=== PATIENT | female | born 1970 | race Two or more races ===

== ENCOUNTER 2019-05-09 10:04 | Outpatient (CLI) | payer BC ==
[2019-05-09 10:43] LABS: APPEARANCE,URINE SL CLOUDY (CLEAR); BILIRUBIN,URINE NEGATIVE (NEGATIVE); BLOOD, URINE TRACE-INTA Ery/uL (NEGATIVE); COLOR,URINE YELLOW (YELLOW); KETONES,URINE NEGATIVE (NEGATIVE); LEUKOCYTE ESTERASE ,URINE NEGATIVE (NEGATIVE); NITRITE, URINE NEGATIVE (NEGATIVE); PROTEIN,URINE NEGATIVE (NEGATIVE); UGLUCOSE NEGATIVE (NEGATIVE); UROBILINOGEN,URINE 0.2 EU/dL (0.2)
[2019-05-09 10:45] LABS: BASOPHILS % (AUTO) 0.8 % (0.0-2.0); EOSINOPHILS % (AUTO) 1.4 % (0.0-6.0); HEMATOCRIT 43 % (33-45); HEMOGLOBIN 14.5 g/dL (11.5-14.8); LYMPHOCYTES # (AUTO) 1.7 /CMM (0.8-4.8); LYMPHOCYTES % (AUTO) 28.9 % (20.0-44.0); MEAN CORPUSCULAR HGB CONC 33 g/dl (31.0-36.0); MEAN CORPUSCULAR VOLUME 91 fL (82-100); MONOCYTES # (AUTO) 0.4 /CMM (0.1-1.30); MONOCYTES % (AUTO) 7.1 % (2.0-12.0); NEUTROPHILS # (AUTO) 3.7 /CMM (1.8-8.9); NEUTROPHILS % (AUTO) 61.8 % (43.0-81.0); PLATELET COUNT (AUTO) 263 /CMM (150-450); RED BLOOD CELL COUNT(AUTO) 4.77 MIL/uL (4.0-5.2); WHITE BLOOD COUNT (AUTO) 5.9 K/uL (4.3-11.0)
[2019-05-09 10:58] LABS: BACTERIA,URINE Few /HPF (None Seen); RBC,URINE 0-2 /HPF (0-2); SQUAMOUS EPITHELIAL CELL,UR Many /HPF (None Seen); WBC,URINE 0-2 /HPF (0-3)
[2019-05-09 10:59] LABS: ALBUMIN 3.8 g/dL (3.4-5.0); BILIRUBIN,TOTAL 0.4 mg/dL (0.2-1.0); CREATININE 0.7 mg/dL (0.6-1.3); POTASSIUM 3.9 mmol/L (3.5-5.1); TOTAL PROTEIN, SERUM 7.3 g/dL (6.4-8.2)
[2019-05-09 11:06] LABS: THYROID STIMULATING HORMONE 1.449 uIU/mL (0.358-3.74)
== END 2019-05-09 23:59 | disposition home or self-care (01) ==
LOC: LAB 10:04
PROVIDERS: ATTEND Family Medicine
DX: Z00.01 Encounter for general adult medical examination with abnormal findings (principal); Z11.3 Encounter for screening for infections with a predominantly sexual mode of transmission; E55.9 Vitamin D deficiency, unspecified
CPT/HCPCS: 36415; 80053-TC; 80061-TC; 81000-TC; 82306; 84439-TC; 84443-TC; 85025-TC; 86592; 87806

== ENCOUNTER 2019-06-03 08:05 | Outpatient (CLI) | payer BC ==
[2019-06-03 09:03] LABS: APPEARANCE,URINE CLEAR (CLEAR); BILIRUBIN,URINE NEGATIVE (NEGATIVE); BLOOD, URINE NEGATIVE Ery/uL (NEGATIVE); COLOR,URINE YELLOW (YELLOW); KETONES,URINE NEGATIVE (NEGATIVE); LEUKOCYTE ESTERASE ,URINE NEGATIVE (NEGATIVE); NITRITE, URINE NEGATIVE (NEGATIVE); PROTEIN,URINE NEGATIVE (NEGATIVE); UGLUCOSE NEGATIVE (NEGATIVE); UROBILINOGEN,URINE 0.2 EU/dL (0.2)
== END 2019-06-03 23:59 | disposition home or self-care (01) ==
LOC: LAB 08:05
PROVIDERS: ATTEND Family Medicine
DX: R31.9 Hematuria, unspecified (principal)
CPT/HCPCS: 81000-TC

== ENCOUNTER 2019-07-23 14:22 | Emergency (ER) | payer BC, OTHER ==
[~2019-07-23] VITALS: Ht 154.9 cm; Wt 68.9 kg
[2019-07-23 14:46] VITALS: BP 135/77
--- NOTE | 2019-07-23 15:59 | NUR ---
covid swab sent to lab
== END 2019-07-23 16:00 | disposition home or self-care (01) ==
LOC: ER 14:22
DX: Z03.818 Encounter for observation for suspected exposure to other biological agents ruled out (principal); J45.909 Unspecified asthma, uncomplicated
CPT/HCPCS: 99283; U0003

== ENCOUNTER 2019-07-24 09:25 | Outpatient (CLI) | payer BC | END 2019-07-24 23:59 | disposition home or self-care (01) | LOC: LAB 09:25 | PROVIDERS: ATTEND Family Medicine | DX: M47.816 Spondylosis without myelopathy or radiculopathy, lumbar region (principal); M43.17 Spondylolisthesis, lumbosacral region; M41.86 Other forms of scoliosis, lumbar region | CPT/HCPCS: 36415; 72110-TC; 84550-TC; 86431-TC ==

== ENCOUNTER 2019-08-17 13:40 | Emergency (ER) | payer BC, OTHER ==
[~2019-08-17] VITALS: Ht 154.9 cm; Wt 73.5 kg
[2019-08-17 13:55] VITALS: BP 126/78
--- NOTE | 2019-08-17 14:31 | NUR ---
COVID TESTING DONE & SENT TO LAB.
== END 2019-08-17 14:32 | disposition home or self-care (01) ==
LOC: ER 13:42
DX: Z11.59 Encounter for screening for other viral diseases (principal)
CPT/HCPCS: 99283; C9803; U0003

== ENCOUNTER 2019-08-23 13:46 | Emergency (ER) | payer OTHER ==
[~2019-08-23] VITALS: Ht 154.9 cm; Wt 73.5 kg
[2019-08-23 14:06] VITALS: BP 127/82
--- NOTE | 2019-08-23 15:10 | NUR ---
COVID SWAB OBTAINED AND SENT TO LAB.
--- NOTE | 2019-08-23 15:24 | NUR ---
Patient discharged to home in stable condition. Written and verbal after care instructions given. Patient verbalizes understanding of instruction.
== END 2019-08-23 15:25 | disposition home or self-care (01) ==
LOC: ER 13:49
DX: Z03.818 Encounter for observation for suspected exposure to other biological agents ruled out (principal)
CPT/HCPCS: 99283; C9803; U0003

== ENCOUNTER 2019-09-06 14:01 | Emergency (ER) | payer OTHER ==
[~2019-09-06] VITALS: Ht 154.9 cm; Wt 68.0 kg
[2019-09-06 14:23] VITALS: BP 135/88
== END 2019-09-06 15:17 | disposition home or self-care (01) ==
LOC: ER 14:03
DX: Z11.59 Encounter for screening for other viral diseases (principal)
CPT/HCPCS: 99283; C9803; U0003; J7030

== ENCOUNTER 2019-09-12 12:51 | Emergency (ER) | payer OTHER ==
[~2019-09-12] VITALS: Ht 162.6 cm; Wt 62.1 kg
[2019-09-12 13:05] VITALS: BP 128/74
--- NOTE | 2019-09-12 13:40 | NUR ---
COVID SWAB SPECIMEN OBTAINED AND SENT TO LAB.
--- NOTE | 2019-09-12 13:45 | NUR ---
Patient discharged to home in stable condition. Written and verbal after care instructions given. Patient verbalizes understanding of instruction.
== END 2019-09-12 13:46 | disposition home or self-care (01) ==
LOC: ER 12:51
DX: Z11.59 Encounter for screening for other viral diseases (principal)
CPT/HCPCS: 99283; C9803; U0003

== ENCOUNTER 2019-09-19 14:38 | Emergency (ER) | payer OTHER ==
[~2019-09-19] VITALS: Ht 154.9 cm; Wt 63.5 kg
[2019-09-19 14:51] VITALS: BP 134/81
--- NOTE | 2019-09-19 15:25 | NUR ---
COVID SWAB DONE AND SENT TO LAB
--- NOTE | 2019-09-19 15:26 | NUR ---
Patient discharged to home in stable condition. Written and verbal after care instructions given. Patient verbalizes understanding of instruction. Pt ambulatory with a steady gait
== END 2019-09-19 15:27 | disposition home or self-care (01) ==
LOC: ER 14:40
DX: Z11.59 Encounter for screening for other viral diseases (principal)
CPT/HCPCS: 99283; C9803; U0003

== ENCOUNTER 2019-09-27 14:21 | Emergency (ER) | payer OTHER ==
[~2019-09-27] VITALS: Ht 154.9 cm; Wt 63.5 kg
[2019-09-27 14:28] VITALS: BP 128/86
--- NOTE | 2019-09-27 14:47 | NUR ---
COVID SWAB DONE AND SENT TO LAB
--- NOTE | 2019-09-27 14:47 | NUR ---
Patient discharged to home in stable condition. Written and verbal after care instructions given. Patient verbalizes understanding of instruction. Pt ambulatory with a steady gait
== END 2019-09-27 14:48 | disposition home or self-care (01) ==
LOC: ER 14:23
DX: Z11.59 Encounter for screening for other viral diseases (principal)
CPT/HCPCS: 99283; C9803; U0003

== ENCOUNTER 2019-10-02 14:49 | Emergency (ER) | payer OTHER ==
[~2019-10-02] VITALS: Ht 157.5 cm; Wt 63.5 kg
[2019-10-02 14:59] VITALS: BP 142/83
== END 2019-10-02 15:43 | disposition home or self-care (01) ==
LOC: ER 14:49
DX: Z20.828 Contact with and (suspected) exposure to other viral communicable diseases (principal)
CPT/HCPCS: 99283; C9803; U0003

== ENCOUNTER → 2019-10-10 | Outpatient (CLI) | payer BC ==
[2019-10-10 10:34] LABS: BASOPHILS % (AUTO) 0.5 % (0.0-2.0); EOSINOPHILS % (AUTO) 1.3 % (0.0-6.0); HEMATOCRIT 43 % (33-45); HEMOGLOBIN 14.2 g/dL (11.5-14.8); LYMPHOCYTES # (AUTO) 2.2 /CMM (0.8-4.8); LYMPHOCYTES % (AUTO) 29.4 % (20.0-44.0); MEAN CORPUSCULAR HGB CONC 33 g/dl (31.0-36.0); MEAN CORPUSCULAR VOLUME 90 fL (82-100); MONOCYTES # (AUTO) 0.5 /CMM (0.1-1.30); MONOCYTES % (AUTO) 6.4 % (2.0-12.0); NEUTROPHILS # (AUTO) 4.6 /CMM (1.8-8.9); NEUTROPHILS % (AUTO) 62.4 % (43.0-81.0); PLATELET COUNT (AUTO) 265 /CMM (150-450); RED BLOOD CELL COUNT(AUTO) 4.74 MIL/uL (4.0-5.2); WHITE BLOOD COUNT (AUTO) 7.3 K/uL (4.3-11.0)
[2019-10-10 11:03] LABS: ALBUMIN 3.8 g/dL (3.4-5.0); BILIRUBIN,TOTAL 0.3 mg/dL (0.2-1.0); CALCIUM, SERUM 8.9 mg/dL (8.5-10.1); CREATININE 0.7 mg/dL (0.6-1.3); TOTAL PROTEIN, SERUM 7.4 g/dL (6.4-8.2)
[2019-10-10 11:10] LABS: THYROID STIMULATING HORMONE 1.056 uIU/mL (0.358-3.74)
== END | disposition home or self-care (01) ==
LOC: LAB 10:04
PROVIDERS: ATTEND Family Medicine
DX: E55.9 Vitamin D deficiency, unspecified (principal); K59.00 Constipation, unspecified
CPT/HCPCS: 36415; 80053-TC; 80061-TC; 82306; 84439-TC; 84443-TC; 85025-TC

== ENCOUNTER 2019-10-18 14:40 | Emergency (ER) | payer BC, OTHER ==
[~2019-10-18] VITALS: Ht 154.9 cm; Wt 64.0 kg
[2019-10-18 14:54] VITALS: BP 118/72
== END 2019-10-18 15:43 | disposition home or self-care (01) ==
LOC: ER 14:41
DX: Z20.828 Contact with and (suspected) exposure to other viral communicable diseases (principal); I10 Essential (primary) hypertension
CPT/HCPCS: 99283; C9803; U0003

== ENCOUNTER 2019-10-25 06:19 | Emergency (ER) | payer BC, OTHER ==
[~2019-10-25] VITALS: Ht 154.9 cm; Wt 73.9 kg
[2019-10-25 06:26] VITALS: BP 150/91
== END 2019-10-25 06:50 | disposition home or self-care (01) ==
LOC: ER 06:19
DX: I10 Essential (primary) hypertension (principal); R00.2 Palpitations; R51 Headache; E03.9 Hypothyroidism, unspecified

== ENCOUNTER 2019-10-26 14:38 | Emergency (ER) | payer BC, OTHER ==
[~2019-10-26] VITALS: Ht 162.6 cm; Wt 74.8 kg
[2019-10-26 15:08] VITALS: BP 135/71
--- NOTE | 2019-10-26 15:09 | NUR ---
COVID TEST DONE & SENT TO LAB.
== END 2019-10-26 15:10 | disposition home or self-care (01) ==
LOC: ER 14:40
DX: Z20.828 Contact with and (suspected) exposure to other viral communicable diseases (principal); I10 Essential (primary) hypertension
CPT/HCPCS: 99283; C9803; U0003

== ENCOUNTER 2019-11-05 14:31 | Emergency (ER) | payer OTHER ==
[~2019-11-05] VITALS: Ht 162.6 cm; Wt 60.8 kg
[2019-11-05 14:36] VITALS: BP 129/79
--- NOTE | 2019-11-05 15:40 | NUR ---
Patient discharged to home in stable condition. Written and verbal after care instructions given. Patient verbalizes understanding of instruction.
== END 2019-11-05 15:40 | disposition home or self-care (01) ==
LOC: ER 14:32
DX: Z20.828 Contact with and (suspected) exposure to other viral communicable diseases (principal)
CPT/HCPCS: 99283; C9803; U0003

== ENCOUNTER 2019-11-28 14:41 | Emergency (ER) | payer BC, OTHER ==
[~2019-11-28] VITALS: Ht 157.5 cm; Wt 68.0 kg
[2019-11-28 14:51] VITALS: BP 125/80
--- NOTE | 2019-11-28 16:34 | NUR ---
covid swab sent, Patient discharged to home in stable condition. Written and verbal after care instructions given. Patient verbalizes understanding of instruction.
== END 2019-11-28 16:37 | disposition home or self-care (01) ==
LOC: ER 14:44
DX: Z20.828 Contact with and (suspected) exposure to other viral communicable diseases (principal); I10 Essential (primary) hypertension
CPT/HCPCS: 99283; C9803; U0003

== ENCOUNTER 2019-12-09 14:41 | Emergency (ER) | payer OTHER ==
[~2019-12-09] VITALS: Ht 154.9 cm; Wt 70.3 kg
[2019-12-09 14:48] VITALS: BP 129/71
--- NOTE | 2019-12-09 15:13 | NUR ---
Patient discharged to home in stable condition. Written and verbal after care instructions given. Patient verbalizes understanding of instruction. Pt ambulatory with a steady gait
--- NOTE | 2019-12-09 15:13 | NUR ---
COVID SWAB DONE AND SENT TO LAB
== END 2019-12-09 15:15 | disposition home or self-care (01) ==
LOC: ER 14:42
DX: Z20.828 Contact with and (suspected) exposure to other viral communicable diseases (principal); I10 Essential (primary) hypertension
CPT/HCPCS: 99283; C9803; U0003

== ENCOUNTER 2019-12-17 14:43 | Emergency (ER) | payer OTHER ==
[~2019-12-17] VITALS: Ht 154.9 cm; Wt 71.2 kg
[2019-12-17 14:45] VITALS: BP 135/81
--- NOTE | 2019-12-17 15:09 | NUR ---
Patient discharged to home in stable condition. Written and verbal after care instructions given. Patient verbalizes understanding of instruction.
== END 2019-12-17 15:08 | disposition home or self-care (01) ==
LOC: ER 14:45
DX: Z20.828 Contact with and (suspected) exposure to other viral communicable diseases (principal); I10 Essential (primary) hypertension; Z86.39 Personal history of other endocrine, nutritional and metabolic disease
CPT/HCPCS: 99283; C9803; U0003

== ENCOUNTER 2019-12-23 14:44 | Emergency (ER) | payer OTHER ==
[~2019-12-23] VITALS: Ht 154.9 cm; Wt 70.3 kg
[2019-12-23 14:47] VITALS: BP 137/81
--- NOTE | 2019-12-23 15:20 | NUR ---
Patient discharged to home in stable condition. Written and verbal after care instructions given. Patient verbalizes understanding of instruction. Pt ambulatory with a steady gait
--- NOTE | 2019-12-23 15:20 | NUR ---
COVID SWAB DONE AND SENT TO LAB
== END 2019-12-23 15:21 | disposition home or self-care (01) ==
LOC: ER 14:45
DX: Z20.828 Contact with and (suspected) exposure to other viral communicable diseases (principal); I10 Essential (primary) hypertension
CPT/HCPCS: 99283; C9803; U0003

== ENCOUNTER 2019-12-30 14:31 | Emergency (ER) | payer OTHER ==
[~2019-12-30] VITALS: Ht 154.9 cm; Wt 75.7 kg
[2019-12-30 14:33] VITALS: BP 122/64
--- NOTE | 2019-12-30 14:59 | NUR ---
Patient discharged to home in stable condition. Written and verbal after care instructions given. Patient verbalizes understanding of instruction.
== END 2019-12-30 15:00 | disposition home or self-care (01) ==
LOC: ER 14:36
DX: Z20.828 Contact with and (suspected) exposure to other viral communicable diseases (principal); I10 Essential (primary) hypertension; J45.909 Unspecified asthma, uncomplicated
CPT/HCPCS: 99283; C9803; U0003

== ENCOUNTER 2020-01-07 14:15 | Emergency (ER) | payer OTHER ==
[~2020-01-07] VITALS: Ht 154.9 cm; Wt 75.7 kg
[2020-01-07 14:26] VITALS: BP 130/80
== END 2020-01-07 14:40 | disposition home or self-care (01) ==
LOC: ER 14:15
DX: Z20.828 Contact with and (suspected) exposure to other viral communicable diseases (principal)
CPT/HCPCS: 99283; C9803; U0003

== ENCOUNTER 2020-01-13 14:27 | Emergency (ER) | payer OTHER ==
[~2020-01-13] VITALS: Ht 154.9 cm; Wt 65.8 kg
[2020-01-13 14:32] VITALS: BP 118/65
--- NOTE | 2020-01-13 14:53 | NUR ---
Patient discharged to home in stable condition. Written and verbal after care instructions given. Patient verbalizes understanding of instruction.
--- NOTE | 2020-01-14 17:29 | NUR ---
CALLED PT ON CELLPHONE, NO ANSWER BUT LEFT MESSAGE TO CALL BACK TO ED
== END 2020-01-13 14:53 | disposition home or self-care (01) ==
LOC: ER 14:28
DX: U07.1 COVID-19 (principal); J45.909 Unspecified asthma, uncomplicated
CPT/HCPCS: 99283; C9803; U0003

== ENCOUNTER 2020-02-12 11:02 | Outpatient (CLI) | payer BC | END 2020-02-12 23:59 | disposition home or self-care (01) | LOC: RAD 11:02 | PROVIDERS: ATTEND Family Medicine | DX: M25.532 Pain in left wrist (principal) | CPT/HCPCS: 73110 ==

== ENCOUNTER 2020-02-19 09:19 | Outpatient (CLI) | payer BC | END 2020-02-19 23:59 | disposition home or self-care (01) | LOC: CT 09:19 | PROVIDERS: ATTEND Family Medicine | DX: R04.2 Hemoptysis (principal) | CPT/HCPCS: 71250-TC ==

== ENCOUNTER 2020-04-23 09:05 | Outpatient (CLI) | payer BC | END 2020-04-23 23:59 | disposition home or self-care (01) | LOC: US 09:05 | PROVIDERS: ATTEND Family Medicine | DX: D25.1 Intramural leiomyoma of uterus (principal); N85.4 Malposition of uterus; N92.0 Excessive and frequent menstruation with regular cycle; R10.9 Unspecified abdominal pain | CPT/HCPCS: 76700-TC; 76856-TC ==

== ENCOUNTER 2020-05-24 06:28 | Emergency (ER) | payer OTHER, BC ==
[~2020-05-24] VITALS: Ht 157.5 cm; Wt 68.0 kg
[2020-05-24 06:42] VITALS: BP 126/89
== END 2020-05-24 06:44 | disposition home or self-care (01) ==
LOC: ER 06:32
DX: Z20.822 Contact with and (suspected) exposure to COVID-19 (principal); J45.909 Unspecified asthma, uncomplicated; I10 Essential (primary) hypertension
CPT/HCPCS: 99283; C9803; U0003

== ENCOUNTER 2020-10-28 10:13 | Outpatient (CLI) | payer BC ==
[2020-10-28 12:35] LABS: BASOPHILS % (AUTO) 0.6 % (0.0-2.0); EOSINOPHILS % (AUTO) 1.4 % (0.0-6.0); HEMATOCRIT 40 % (33-45); HEMOGLOBIN 13.3 g/dL (11.5-14.8); LYMPHOCYTES # (AUTO) 1.6 K/uL (0.8-4.8); LYMPHOCYTES % (AUTO) 28.5 % (20.0-44.0); MEAN CORPUSCULAR HGB CONC 33 g/dl (31.0-36.0); MEAN CORPUSCULAR VOLUME 90 fL (82-100); MONOCYTES # (AUTO) 0.3 K/uL (0.1-1.30); MONOCYTES % (AUTO) 5.6 % (2.0-12.0); NEUTROPHILS # (AUTO) 3.6 K/uL (1.8-8.9); NEUTROPHILS % (AUTO) 63.9 % (43.0-81.0); PLATELET COUNT (AUTO) 264 K/uL (150-450); RED BLOOD CELL COUNT(AUTO) 4.44 MIL/uL (4.0-5.2); WHITE BLOOD COUNT (AUTO) 5.6 K/uL (4.3-11.0)
[2020-10-28 12:59] LABS: ALBUMIN 3.6 g/dL (3.4-5.0); BILIRUBIN,TOTAL 0.4 mg/dL (0.2-1.0); CALCIUM, SERUM 8.6 mg/dL (8.5-10.1); CREATININE 0.6 mg/dL (0.6-1.3); POTASSIUM 3.7 mmol/L (3.5-5.1); TOTAL PROTEIN, SERUM 7.2 g/dL (6.4-8.2)
[2020-10-28 13:04] LABS: BILIRUBIN,URINE NEGATIVE (NEGATIVE); COLOR,URINE YELLOW (YELLOW); LEUKOCYTE ESTERASE ,URINE NEGATIVE (NEGATIVE); NITRITE, URINE NEGATIVE (NEGATIVE); PH,URINE 5.5 (5.0-8.0); PROTEIN,URINE NEGATIVE (NEGATIVE); UGLUCOSE NEGATIVE (NEGATIVE); UROBILINOGEN,URINE 0.2 EU/dL (0.2)
[2020-10-28 13:07] LABS: FREE T4 (FREE THYROXINE) 1.12 ng/dL (0.76-1.46); THYROID STIMULATING HORMONE 1.986 uIU/mL (0.358-3.74)
== END 2020-10-28 23:59 | disposition home or self-care (01) ==
LOC: LAB 10:13
PROVIDERS: ATTEND Family Medicine
DX: L50.0 Allergic urticaria (principal); R51.9 Headache, unspecified; R58 Hemorrhage, not elsewhere classified; Z86.19 Personal history of other infectious and parasitic diseases
CPT/HCPCS: 36415; 80053-TC; 80061-TC; 82306; 84439-TC; 84443-TC; 85025-TC; 85730-TC; 87338

== ENCOUNTER 2020-12-24 08:56 | Outpatient (CLI) | payer BC | END 2020-12-24 23:59 | disposition home or self-care (01) | LOC: US 08:56 | PROVIDERS: ATTEND Family Medicine | DX: D25.1 Intramural leiomyoma of uterus (principal); D25.0 Submucous leiomyoma of uterus; N85.4 Malposition of uterus | CPT/HCPCS: 76856-TC ==

== ENCOUNTER 2021-01-21 08:11 | Outpatient (CLI) | payer BC | END 2021-01-21 23:59 | disposition home or self-care (01) | LOC: RAD 08:11 | PROVIDERS: ATTEND Family Medicine | DX: M19.012 Primary osteoarthritis, left shoulder (principal); M85.88 Other specified disorders of bone density and structure, other site; M79.89 Other specified soft tissue disorders; M54.50 Low back pain, unspecified | CPT/HCPCS: 72220-TC; 73000-TC; 73030-TC ==

== ENCOUNTER 2021-02-17 08:52 | Outpatient (CLI) | payer BC | END 2021-02-17 23:59 | disposition home or self-care (01) | LOC: US 08:52 | PROVIDERS: ATTEND Family Medicine | DX: R10.9 Unspecified abdominal pain (principal) | CPT/HCPCS: 76700-TC ==

== ENCOUNTER 2021-02-22 12:52 | Outpatient (CLI) | payer BC | END 2021-02-22 23:59 | disposition home or self-care (01) | LOC: MRI 12:52 | PROVIDERS: ATTEND Family Medicine | DX: M19.011 Primary osteoarthritis, right shoulder (principal); M19.012 Primary osteoarthritis, left shoulder; M62.512 Muscle wasting and atrophy, not elsewhere classified, left shoulder; M62.511 Muscle wasting and atrophy, not elsewhere classified, right shoulder | CPT/HCPCS: 73221-TC ==

== ENCOUNTER 2021-07-14 09:55 | Outpatient (CLI) | payer BC | END 2021-07-14 23:59 | disposition home or self-care (01) | LOC: CT 09:55 | PROVIDERS: ATTEND Family Medicine | DX: J32.0 Chronic maxillary sinusitis (principal); J01.30 Acute sphenoidal sinusitis, unspecified; R51.9 Headache, unspecified; M25.561 Pain in right knee | CPT/HCPCS: 70450-TC; 70486-TC; 73562 ==

== ENCOUNTER 2021-10-13 08:34 | Outpatient (CLI) | payer BC | END 2021-10-13 23:59 | disposition home or self-care (01) | LOC: US 08:34 | PROVIDERS: ATTEND Family Medicine | DX: D25.9 Leiomyoma of uterus, unspecified (principal); N88.8 Other specified noninflammatory disorders of cervix uteri; M48.07 Spinal stenosis, lumbosacral region; M51.27 Other intervertebral disc displacement, lumbosacral region; M48.8X7 Other specified spondylopathies, lumbosacral region; R10.2 Pelvic and perineal pain | CPT/HCPCS: 72148-TC; 76856-TC ==

== ENCOUNTER → 2022-03-15 | Outpatient (CLI) | payer BC | END | disposition home or self-care (01) | LOC: US 09:58 | PROVIDERS: ATTEND Family Medicine | DX: D25.9 Leiomyoma of uterus, unspecified (principal); N88.8 Other specified noninflammatory disorders of cervix uteri; R10.2 Pelvic and perineal pain | CPT/HCPCS: 76856-TC ==

== ENCOUNTER 2022-03-16 10:35 | Outpatient (CLI) | payer BC | END 2022-03-16 23:59 | disposition home or self-care (01) | LOC: RAD 10:35 | PROVIDERS: ATTEND Family Medicine | DX: I10 Essential (primary) hypertension (principal); R06.02 Shortness of breath | CPT/HCPCS: 71046 ==

== ENCOUNTER 2022-07-12 11:05 | Outpatient (CLI) | payer BC ==
[2022-07-12 12:48] LABS: BASOPHILS % (AUTO) 0.8 % (0.0-2.0); EOSINOPHILS % (AUTO) 3.7 % (0.0-6.0); HEMATOCRIT 40 % (33-45); HEMOGLOBIN 13.3 g/dL (11.5-14.8); LYMPHOCYTES # (AUTO) 1.8 K/uL (0.8-4.8); LYMPHOCYTES % (AUTO) 31.3 % (20.0-44.0); MEAN CORPUSCULAR HGB CONC 34 g/dl (31.0-36.0); MEAN CORPUSCULAR VOLUME 93 fL (82-100); MONOCYTES # (AUTO) 0.4 K/uL (0.1-1.30); MONOCYTES % (AUTO) 6.8 % (2.0-12.0); NEUTROPHILS # (AUTO) 3.3 K/uL (1.8-8.9); NEUTROPHILS % (AUTO) 57.4 % (43.0-81.0); PLATELET COUNT (AUTO) 254 K/uL (150-450); RED BLOOD CELL COUNT(AUTO) 4.26 MIL/uL (4.0-5.2); WHITE BLOOD COUNT (AUTO) 5.8 K/uL (4.3-11.0)
[2022-07-12 12:58] LABS: BILIRUBIN,URINE NEGATIVE (NEGATIVE); COLOR,URINE YELLOW (YELLOW); LEUKOCYTE ESTERASE ,URINE NEGATIVE (NEGATIVE); NITRITE, URINE NEGATIVE (NEGATIVE); PROTEIN,URINE NEGATIVE (NEGATIVE); UGLUCOSE NEGATIVE (NEGATIVE); UROBILINOGEN,URINE 0.2 EU/dL (0.2)
[2022-07-12 13:39] LABS: ALANINE AMINOTRANSFERASE 23 U/L (12-78); ALBUMIN 3.4 g/dL (3.4-5.0); ALKALINE PHOSPHATASE 58 U/L (46-116); ASPARTATE AMINOTRANSFERASE 15 U/L (15-37); BILIRUBIN,TOTAL 0.3 mg/dL (0.2-1.0); CALCIUM, SERUM 8.5 mg/dL (8.5-10.1); CARBON DIOXIDE 29 mmol/L (21-32); CHLORIDE 107 mmol/L (98-107); CREATININE 0.5 mg/dL (0.6-1.3); GLUCOSE 80 mg/dL (74-106); POTASSIUM 3.7 mmol/L (3.5-5.1); SODIUM SERUM 140 mmol/L (136-145); TOTAL PROTEIN, SERUM 6.7 g/dL (6.4-8.2); UREA NITROGEN, BLOOD 15 mg/dL (7-18)
[2022-07-12 13:40] LABS: C-REACTIVE PROTEIN < 0.2 mg/dL (0.0-0.9)
[2022-07-13 11:07] LABS: COMPLEMENT C3, SERUM 89 mg/dL (82-167); COMPLEMENT C4, SERUM 16 mg/dL (12-38); THYROID PEROXIDASE (TPO) AB 274 IU/mL (0-34)
[2022-07-13 22:06] LABS: CCP IgG/IgA AB 3 units (0-19)
== END 2022-07-12 23:59 | disposition home or self-care (01) ==
LOC: LAB 11:05
PROVIDERS: ATTEND Internal Medicine Rheumatology
DX: M25.512 Pain in left shoulder (principal); M54.50 Low back pain, unspecified; R76.0 Raised antibody titer; M19.90 Unspecified osteoarthritis, unspecified site; M32.9 Systemic lupus erythematosus, unspecified; R70.0 Elevated erythrocyte sedimentation rate; Z79.899 Other long term (current) drug therapy
CPT/HCPCS: 36415; 72100-TC; 73030-TC; 80053-TC; 85025-TC; 85610-TC; 85652-TC; 85730-TC; 86140-TC; 86160; 86200; 86376; 86592; 86593; 86803; 87340

== ENCOUNTER 2023-04-12 14:26 | Emergency (ER) | payer BC, OTHER ==
[~2023-04-12] VITALS: Ht 157.5 cm; Wt 63.5 kg
[2023-04-12 14:44] VITALS: BP 144/83; TEMP 98.2
[2023-04-12] MEDS: IBUPROFEN 600 MG TABLET PO ONE (15:00)
[2023-04-12] MEDS ORDERED: IBUPROFEN 600 MG TABLET ONE (16:00)
[2023-04-12 16:13] VITALS: O2SAT 100
== END 2023-04-12 16:14 | disposition home or self-care (01) ==
LOC: ER 14:38
DX: M25.572 Pain in left ankle and joints of left foot (principal); I10 Essential (primary) hypertension; J45.909 Unspecified asthma, uncomplicated
CPT/HCPCS: 73610-TC; 73630-TC